=== PATIENT | female | born 1955 | race African-American/Black ===

== ENCOUNTER 2019-02-10 11:58 | Emergency (ER) | payer OTHER ==
[~2019-02-10] VITALS: Ht 165.1 cm; Wt 74.8 kg
[2019-02-10 12:32] VITALS: Ht 165.1 cm; Wt 74.8 kg
[2019-02-10 15:16] LABS: BASOPHIL % 0.5 % (0-2)
[2019-02-10 15:19] LABS: PLATELET COUNT 442 x10^3mcL (130-400)
[2019-02-10 15:21] LABS: CALCIUM 8.9 mg/dL (8.5-10.1); CARBON DIOXIDE 30.5 mmol/L (21-32); CHLORIDE SERUM 102 mmol/L (98-107); CREATININE SERUM 0.7 mg/dL (0.6-1.0); GFR1 > 60 mL/min; GLUCOSE SERUM 91 mg/dL (74-106); POTASSIUM SERUM 3.3 mmol/L (3.5-5.1); SODIUM SERUM 138 mmol/L (136-145)
[2019-02-10 15:28] LABS: microscopic required? NO
[2019-02-10 15:34] LABS: ALBUMIN 4.2 g/dL (3.4-5.0); ALKALINE PHOSPHATASE 132 U/L (46-116); ALT/SGPT 44 U/L (14-59); AST/SGOT 23 U/L (15-37); BILIRUBIN TOTAL 0.3 mg/dL (0.20-1.00); FREE T4 0.99 ng/dL (0.76-1.46); TOTAL PROTEIN, SERUM 8.1 g/dL (6.4-8.2)
[2019-02-10 15:35] LABS: urine erythrocyte NEGATIVE (NEGATIVE)
[2019-02-10 19:13] VITALS: BP 135/84
== END 2019-02-10 19:13 | disposition left against medical advice (07) ==
LOC: ED 11:58
PROVIDERS: Emergency Medicine
DX: R42 Dizziness and giddiness (principal); R35.0 Frequency of micturition; J44.9 Chronic obstructive pulmonary disease, unspecified; I10 Essential (primary) hypertension; Z88.6 Allergy status to analgesic agent; Z88.8 Allergy status to other drugs, medicaments and biological substances
CPT/HCPCS: 36415; 84439; J8597